=== PATIENT | male | born 1935 | race Caucasian/White ===

== ENCOUNTER 2016-09-11 05:03 | Emergency (ER) | payer MEDICARE, OTHER ==
[2016-09-11 07:14] LABS: ABSOLUTE EOSINOPHILS # (AUTO) 0.1 10^3/uL (0.0-0.6); ABSOLUTE LYMPHOCYTES (AUTO) 1.2 10^3/uL (0.5-4.7); ABSOLUTE MONOCYTES (AUTO) 0.5 10^3/uL (0.1-1.4); ABSOLUTE NEUT (AUTO) 3.1 10^3/uL (1.7-8.2); BASOPHILS % (AUTO) 0.7 % (0-2); EOSINOPHILS % (AUTO) 1.4 % (0-6); HEMATOCRIT 41.9 % (37.9-51.0); HEMOGLOBIN 14.4 g/dL (13.5-17.0); HGB HCT DIFFERENCE 1.3; LYMPHOCYTES % (AUTO) 25.4 % (13-45); MEAN CORPUSCULAR HEMOGLOBIN 29.8 pg (27.0-33.4); MEAN CORPUSCULAR HGB CONC 34.5 g/dL (32.0-36.0); MEAN CORPUSCULAR VOLUME 86 fl (80-97); MONOCYTES % (AUTO) 9.5 % (3-13); RED BLOOD COUNT 4.85 10^6/uL (4.35-5.55); RED CELL DISTRIBUTION WIDTH 13.9 % (11.5-14.0); WHITE BLOOD COUNT 4.9 10^3/uL (4.0-10.5)
[2016-09-11 07:26] LABS: ALANINE AMINOTRANSFERASE 30 U/L (21-72); ALBUMIN 4.2 g/dL (3.5-5.0); ALKALINE PHOSPHATASE 97 U/L (38-126); ANION GAP 11 (5-19); ASPARTATE AMINO TRANSFERASE 22 U/L (17-59); BILIRUBIN,TOTAL 1.6 mg/dL (0.2-1.3); BLOOD UREA NITROGEN 16 mg/dL (7-20); CALCIUM 9.4 mg/dL (8.4-10.2); CARBON DIOXIDE 27 mmol/L (22-30); CHLORIDE 100 mmol/L (98-107); CREATININE RESULT 1.12 mg/dL (0.52-1.25); GLUCOSE 101 mg/dL (75-110); LIPASE 75.2 U/L (23-300); POTASSIUM 4.3 mmol/L (3.6-5.0); SODIUM 137.8 mmol/L (137-145); TOTAL PROTEIN 6.3 g/dL (6.3-8.2)
[2016-09-11 08:19] LABS: APPEARANCE,URINE CLEAR; BILIRUBIN,URINE NEGATIVE (NEGATIVE); GLUCOSE, URINE NEGATIVE (NEGATIVE); KETONES,URINE NEGATIVE (NEGATIVE); LEUKOCYTE ESTERASE,URINE TRACE (NEGATIVE); NITRITE,URINE NEGATIVE (NEGATIVE); PROTEIN,URINE NEGATIVE (NEGATIVE); URINE SPECIFIC GRAVITY 1.018; UROBILINOGEN,URINE NEGATIVE mg/dL (<2.0)
--- NOTE | 2016-09-11 09:13 | ER Document Report ---
ED General - General Chief Complaint: Groin Pain Stated Complaint: GROIN PAIN Mode of Arrival: Ambulatory Information source: Patient Notes: Patient presents to the emergency department with complaints of right lower quadrant abdominal pain that radiates to his back and down the back of his right leg. Patient reports symptoms started approximately 8 PM last night. He describes them as a sharp steady pain that throbs. He reports the pain increased so he came to the emergency department. He denies other symptoms such as trauma fever vomiting diarrhea. He reports up until 8 PM last night he was fine. Patient denies pain with void. He denies testicular pain. He denies history of kidney stones. TRAVEL OUTSIDE OF THE [place] IN LAST 30 DAYS: No - HPI Onset: Yesterday Onset/Duration: Sudden, Persistent Quality of pain: Sharp, Throbbing Severity: Severe Pain Level: 4 Associated symptoms: None Exacerbated by: Denies. denies: Movement, Walking Relieved by: Denies Similar symptoms previously: No Recently seen / treated by doctor: No - Related Data Allergies/Adverse Reactions: No Known Allergies Allergy (Verified 09/11/16 05:18) Past Medical History - General Information source: Patient - Social History Smoking Status: Former Smoker - Quit 30 years ago Cigarette use (# per day): No Chew tobacco use (# tins/day): No Frequency of alcohol use: Rare Drug Abuse: None Family History: Reviewed & Not Pertinent Patient has suicidal ideation: No Patient has homicidal ideation: No - Past Medical History Cardiac Medical History: Reports: Hx Hypertension - DIOVAN Denies: Hx Heart Attack Pulmonary Medical History: Denies: Hx Asthma Neurological Medical History: Denies: Hx Cerebrovascular Accident, Hx Seizures Renal/ Medical History: Denies: Hx Peritoneal Dialysis GI Medical History: Denies: Hx Hepatitis, Hx Hiatal Hernia, Hx Ulcer Infectious Medical History: Denies: Hx Hepatitis Surgical Hx: Negative Past Surgical History: Denies: Hx Open Heart Surgery, Hx Pacemaker Review of Systems - Review of Systems Notes: Review HPI for review of systems., All other systems negative Physical Exam - Vital signs Vitals: Temp Pulse Resp BP Pulse Ox 97.4 F 76 16 146/78 H 98 09/11/16 05:10 09/11/16 05:10 09/11/16 05:10 09/11/16 05:10 09/11/16 05:10 - Notes Notes: PHYSICAL EXAMINATION: GENERAL: Well-appearing and in no acute distress nontoxic looking, calm HEAD: Atraumatic, normocephalic. EYES: Pupils equal round extraocular movements intact, sclera anicteric, conjunctiva are normal. ENT: nares patent, oropharynx clear without exudates. Moist mucous membranes. NECK: Normal range of motion, supple without lymphadenopathy LUNGS: CTAB and equal. No wheezes rales or rhonchi. HEART: Regular rate and rhythm without murmurs ABDOMEN: Soft, RLQ ttp. No guarding, no rebound BACK: Denies pain with palpation EXTREMITIES: Normal range of motion, no pitting edema. No cyanosis. NEUROLOGICAL: Cranial nerves grossly intact. Normal sensory/motor PSYCH: Normal mood, normal affect. SKIN: Warm, Dry, normal turgor, no rashes or lesions noted - Abdominal Inspection: Normal Distension: No distension Bowel sounds: Normal Tenderness: Tender - pt c/o some discomfort, does not scream in pain, no pain with movement, heel tap, negative obturator sign.. No: McBurney's point, Alcantara 's sign, Guarding, Rebound Adult front & back diagram: 1 - ttp - Genitourinary Tenderness: Nontender Scrotum: Normal. No: Swelling, Redness Course - Re-evaluation Re-evalutation: 09/11/16 09:10 I have consulted the attending provider Dr Roa per [facility] guidelines CT advised 09/11/16 09:50 CT neg, patient was instructed on all his labs importance of drinking lots of water, flushing his kidneys and follow-up with Dr. Ornelas in the morning. Patient reports he is feeling a lot better but requests something stronger for pain. We discussed Motrin and he wanted something stronger. He was educated on T#3, constipation, and warned to not take while driving. He verbalized understanding. - Vital Signs Vital signs: Temp Pulse Resp BP Pulse Ox 97.4 F 76 19 178/72 H 95 09/11/16 05:10 09/11/16 05:10 09/11/16 10:00 09/11/16 09:48 09/11/16 10:00 - Laboratory Result Diagrams: 09/11/16 06:50 09/11/16 06:50 Laboratory results interpreted by me: 09/11/16 09/11/16 06:50 06:50 Total Bilirubin 1.6 H Ur Leukocyte Esterase TRACE H - Diagnostic Test Radiology reviewed: Image reviewed, Reports reviewed - IMPRESSION: NO SIGNIFICANT OR ACUTE FINDING IN THE ABDOMEN OR PELVIS ON CT SCAN WITH IV CONTRAST Discharge - Discharge Clinical Impression: elevated blood pressure RLQ abdominal tenderness Qualifiers: Presence of rebound: present Qualified Code(s): R10.823 - Right lower quadrant rebound abdominal tenderness Condition: Stable Disposition: HOME, SELF-CARE Instructions: Abdominal Pain ([facility]), Use of Ipnt-Nyr-Fwobhdh Ibuprofen ([facility]), Observation for Appendicitis ([facility]), Acetaminophen with Codeine ([facility]) Additional Instructions: *You have been evaluated for abdominal pain *Your CT scan was negative for an appendicitis- please drink lots of fluids to flush your kidneys *Take Medication as prescribed for pain- this medication may make you sleepy, do not drive while taking it. This medication may cause constipation. Drink lots of fluids. *Follow up with Dr Ornelas within 3 days- call tomorrow for an appointment- inform the office it is a follow up visit from the emergency department *Return to ED for worsening condition, changes, needs *Return to ED if not better in 24 hours Prescriptions: Acetaminophen with Codeine [Tylenol #3 Tablet] 1 each PO Q4HP PRN #15 tablet PRN Reason: Forms: Elevated Blood Pressure Referrals: FARHAT ORNELAS MD [Primary Care Provider] - Follow up in 3-5 days
[2016-09-11 10:33] VITALS: BP 178/72
== END 2016-09-11 10:41 | disposition home or self-care (01) ==
LOC: ER 05:03
DX: R10.813 Right lower quadrant abdominal tenderness (principal); R10.31 Right lower quadrant pain; I10 Essential (primary) hypertension; Z87.891 Personal history of nicotine dependence
CPT/HCPCS: 36415; 74177; 80053; 81001; 83690; 85025; 99284

== ENCOUNTER → 2016-09-23 | Day surgery (SDC) | payer MEDICARE, OTHER ==
[~2016-09-23] MED LIST: BUPIVACAINE HCL 0.5 % INJ/PF 30 ML SDV ONE; LIDOCAINE 1% INJ-PF (10 MG/ML) 30 ML SDV ONE; METHYLPREDNISOLONE ACETATE INJ 40 MG/1 ML ML ONE
== END ==
LOC: RAD 13:03
PROVIDERS: ATTEND Physician Assistant
PROC: 3E0U33Z Introduction of Anti-inflammatory into Joints, Percutaneous Approach (ICD-10-PCS; principal; 2016-09-23)
DX: M25.551 Pain in right hip (principal)
CPT/HCPCS: 73501; 20610; 77002; J3490; J1020

== ENCOUNTER → 2018-02-13 | Outpatient (CLI) | payer MEDICARE, OTHER ==
--- NOTE | 2018-02-13 15:54 | RADIOLOGY REPORT (SQ) ---
EXAM DESCRIPTION: CT ABD/PELVIS WITH IV ORAL COMPLETED DATE/TIME: 02/13/2018 1:08 pm REASON FOR STUDY: RLQ PAIN (R10.31), PERIUMBILICAL PAIN (R10.33), UMBILICAL HERNIA (K42.9) R10.31 R IGHT LOWER QUADRANT PAIN R10.33 PERIUMBILICAL PAIN K42.9 UMBILICAL HERNIA WITHOUT OBSTRUCTION OR GA NGRENE COMPARISON: None. TECHNIQUE: CT scan of the abdomen and pelvis performed using helical scanning technique with dynamic intravenous contrast injection. Oral contrast. Images reviewed with lung, soft tissue, and bone win dows. Reconstructed coronal and sagittal MPR images reviewed. Delayed images for evaluation of the ur inary system also acquired. All images stored on PACS. All CT scanners at this facility use dose modulation, iterative reconstruction, and/or weight based d osing when appropriate to reduce radiation dose to as low as reasonably achievable (ALARA). [facility]: Dose Right [facility]: CareDose [facility]: Dose Right [facility]: Teradose 4D [facility]: Crazidea CONTRAST TYPE AND DOSE: contrast/concentration: Isovue 370.00 mg/ml; Total Contrast Delivered: 93.0 ml; Total Saline Delivered: 67.0 ml RENAL FUNCTION: Creatinine 1.3 RADIATION DOSE: CT Rad equipment meets quality standard of care and radiation dose reduction techniq ues were employed. CTDIvol: 10.2 - 14.2 mGy. DLP: 1340 mGy-cm.. LIMITATIONS: None. FINDINGS: LOWER CHEST: No significant findings. No nodules or infiltrates. LIVER: Normal size. No masses. No dilated ducts. SPLEEN: Normal size. No focal lesions. PANCREAS: No masses. No significant calcifications. No adjacent inflammation or peripancreatic fluid collections. Pancreatic duct not dilated. GALLBLADDER: No identified stones by CT criteria. No inflammatory changes to suggest cholecystitis. ADRENAL GLANDS: No significant masses or asymmetry. RIGHT KIDNEY AND URETER: No solid masses. No significant calcifications. No hydronephrosis or hyd roureter. LEFT KIDNEY AND URETER: No solid masses. No significant calcifications. No hydronephrosis or hydr oureter. AORTA AND VESSELS: No aneurysm or dissection. There is mild ectasia of the infrarenal abdominal aort a but the maximum diameter is about 25 mm. RETROPERITONEUM: No retroperitoneal adenopathy, hemorrhage or masses. BOWEL AND PERITONEAL CAVITY: Mild sigmoid diverticulosis. No acute inflammatory changes. APPENDIX: Normal. PELVIS: Prostate gland is prominent. There is mild protrusion of the prostate into the base of the b ladder. ABDOMINAL WALL: Small inguinal hernias containing fat and vessels. BONES: No significant or acute findings. OTHER: No other significant finding. IMPRESSION: 1. 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 2. Mild diverticulosis coli. 3. Prominent prostate gland with protrusion into the base of the bladder. 4. Small inguinal hernias containing fat and vessels. TECHNICAL DOCUMENTATION: JOB ID: [id number] Quality ID # [id number]: Final reports with documentation of one or more dose reduction techniques (e.g., Au tomated exposure control, adjustment of the mA and/or kV according to patient size, use of iterative reconstruction technique) 2010 [employer]- All Rights Reserved Reading location - IP/workstation name: [email or web address]
== END ==
LOC: RAD 12:30
PROVIDERS: ATTEND Internal Medicine Gastroenterology
DX: R10.31 Right lower quadrant pain (principal); R10.33 Periumbilical pain; K42.9 Umbilical hernia without obstruction or gangrene
CPT/HCPCS: 74177; 82565

== ENCOUNTER → 2018-09-10 | Outpatient (CLI) | payer MEDICARE, OTHER ==
--- NOTE | 2018-09-10 09:11 | RADIOLOGY REPORT (SQ) ---
EXAM DESCRIPTION: KUB/ABDOMEN (SINGLE VIEW) COMPLETED DATE/TIME: 09/10/2018 8:46 am REASON FOR STUDY: ABDOMINAL TENDERNESS RLQ R10.813 RIGHT LOWER QUADRANT ABDOMINAL TENDERNESS COMPARISON: None. NUMBER OF VIEWS: One view. TECHNIQUE: Supine radiographic image of the abdomen acquired. LIMITATIONS: None. FINDINGS: BOWEL GAS PATTERN: Normal bowel gas pattern. No dilated loops. CALCIFICATIONS: No suspicious calcifications. SOFT TISSUES: No gross mass or suggestion of organomegaly. HARDWARE: None in the abdomen. BONES: No acute fracture. Small bone island overlies the left iliac bone. Slight to mild dextroconv ex scoliosis lumbar spine. Mild degenerative changes bilateral hips. OTHER: No other significant finding. IMPRESSION: 1. NO RADIOGRAPHIC EVIDENCE FOR ACUTE ABDOMINAL DISEASE. TECHNICAL DOCUMENTATION: JOB ID: [id number] [employer]- All Rights Reserved Reading location - IP/workstation name: [email or web address]
== END ==
LOC: RAD 08:32
PROVIDERS: ATTEND Physician Assistant Surgical
DX: K59.01 Slow transit constipation (principal); R10.813 Right lower quadrant abdominal tenderness
CPT/HCPCS: 74018

== ENCOUNTER 2018-09-13 09:04 | Inpatient (IN) | payer MEDICARE, OTHER ==
--- NOTE | 2018-09-13 10:03 | ER Document Report ---
ED General - General Chief Complaint: Abdominal Pain Stated Complaint: BACK/SIDE PAIN Time Seen by Provider: 09/13/18 09:56 Primary Care Provider: BUNNY BOOTH PA-C [Primary Care Provider] - Follow up as needed Notes: Patient says he is having severe pain in his right back and flank and right side for about 2 weeks. He feels as if he is constipated, as he has had this pain previously with constipation. He has had colonoscopy about a year ago by sheet metal operator Dr. Hernandez which he says he was told it was okay except for maybe a small amount of diverticulitis (patient's words) and IBS. He went to Dr. Hernandez his office Monday and was seen by a PA in the office who did an x-ray and told him to take a laxative. Patient says he took magnesium citrate on Monday and later that day had some loose, watery stools. However, he has not had any bowel movement since Monday. Has never passed any blood in his stools. Patient says he was seen here about a year ago for a similar he says the pain is both pain and numbness in the right abdomen and back. He is nauseated but has not vomited. Has felt dizzy. Denies chest pains. Says he does have some shortness of breath and difficulty breathing. Has not had any UTI symptoms or blood in urine. Denies any fever. Has never had any abdominal surgeries. Patient's only other medical problem is hypertension. Not diabetic. No heart disease. Does not smoke. TRAVEL OUTSIDE OF THE [place] IN LAST 30 DAYS: No - Related Data Allergies/Adverse Reactions: No Known Allergies Allergy (Verified 09/11/16 05:18) Past Medical History - Social History Smoking Status: Unknown if Ever Smoked Cigarette use (# per day): No Family History: Reviewed & Not Pertinent - Past Medical History Cardiac Medical History: Reports: Hx Hypertension - DIOVAN Pulmonary Medical History: Denies: Hx Asthma, Hx COPD Endocrine Medical History: Denies: Hx Diabetes Mellitus Type 1, Hx Diabetes Mellitus Type 2 Past Surgical History: Reports: None Review of Systems - Review of Systems Notes: REVIEW OF SYSTEMS: CONSTITUTIONAL : Denies fever. EENT: Denies eye, ear, nose or mouth or throat pain or other symptoms. CARDIOVASCULAR: Denies chest pain. RESPIRATORY: Denies cough, chest congestion, but has felt some difficulty breathing and shortness of breath for a couple of days. GASTROINTESTINAL: See HPI. GENITOURINARY: Denies difficulty or painful urinating, urinary frequency, blood in urine. MUSCULOSKELETAL: Denies back or neck pain. Denies joint pain or swelling. SKIN: Denies rash or skin lesions. NEUROLOGICAL: Denies LOC or altered mental status. Denies headache. Denies sensory loss or motor deficits. ALL OTHER SYSTEMS REVIEWED AND NEGATIVE. Physical Exam - Vital signs Vitals: Temp Pulse Resp BP Pulse Ox 97.6 F 57 L 14 167/70 H 100 09/13/18 09:18 09/13/18 09:18 09/13/18 09:18 09/13/18 09:18 09/13/18 09:18 Interpretation: Normal Notes: PHYSICAL EXAMINATION: GENERAL: Well-appearing, in no acute distress. With mild systolic hypertension. HEAD: Atraumatic, normocephalic. EYES: Pupils equal round and reactive to light, extraocular movements intact. ENT: oropharynx clear without exudates. Moist mucous membranes. NECK: Normal range of motion, supple. LUNGS: Breath sounds clear and equal bilaterally. HEART: Regular rate and rhythm without murmurs. ABDOMEN: Soft, nontender. No guarding or rebound. No masses. No bruits heard. BACK: No tenderness throughout entire back. Patient indicates his pain is in the right mid and lower lumbar back region. EXTREMITIES: Normal range of motion without pain. Negative Homans bilaterally. NEUROLOGICAL: Normal speech, normal gait. Normal sensory, motor, and reflex exams. Awake, alert, and oriented x3. Cranial nerves normal. PSYCH: Normal mood, normal affect. Anxious. SKIN: Warm, dry, no rashes. Course - Re-evaluation Re-evalutation: 09/13/18 13:27 Sodium level is 125. I have contacted the hospitalist and patient will be admitted for IV normal saline overnight. - Vital Signs Vital signs: Temp Pulse Resp BP Pulse Ox 97.6 F 57 L 9 L 191/61 H 99 09/13/18 09:18 09/13/18 09:18 09/13/18 13:01 09/13/18 13:01 09/13/18 13:01 - Laboratory Result Diagrams: 09/13/18 10:20 09/13/18 10:20 Laboratory results interpreted by me: 09/13/18 09/13/18 10:20 12:20 Sodium 125.5 L Chloride 86 L Est GFR (Non-Af Amer) 58 L Total Bilirubin 1.9 H Urine Ketones 20 H - Diagnostic Test Radiology reviewed: Image reviewed, Reports reviewed - CT scan showed moderate stool accumulation. No other significant findings. - EKG Interpretation by Me EKG shows normal: Sinus rhythm Rhythm: NSR Lueders/QRS: LBBB Discharge - Discharge Clinical Impression: Hyponatremia, Constipation Condition: Stable Disposition: ADMITTED OBSERVATION Admitting Provider: Hospitalist Unit Admitted: Telemetry Referrals: BUNNY BOOTH PA-C [Primary Care Provider] - Follow up as needed
[2018-09-13 10:48] LABS: ABSOLUTE EOSINOPHILS # (AUTO) 0.1 10^3/uL (0.0-0.6); ABSOLUTE LYMPHOCYTES (AUTO) 1.2 10^3/uL (0.5-4.7); ABSOLUTE MONOCYTES (AUTO) 0.4 10^3/uL (0.1-1.4); ABSOLUTE NEUT (AUTO) 3.9 10^3/uL (1.7-8.2); BASOPHILS % (AUTO) 0.6 % (0-2); HEMATOCRIT 40.9 % (37.9-51.0); HEMOGLOBIN 14.6 g/dL (13.5-17.0); LYMPHOCYTES % (AUTO) 22.1 % (13-45); MEAN CORPUSCULAR HEMOGLOBIN 30.4 pg (27.0-33.4); MEAN CORPUSCULAR HGB CONC 35.6 g/dL (32.0-36.0); MEAN CORPUSCULAR VOLUME 85 fl (80-97); MONOCYTES % (AUTO) 7.1 % (3-13); PLATELET COUNT 273 10^3/uL (150-450); RED CELL DISTRIBUTION WIDTH 13.1 % (11.5-14.0); SEGMENTED NEUTROPHILS % (AUTO) 69.2 % (42-78); TOTAL CELLS COUNTED % (AUTO) 100 %; WHITE BLOOD COUNT 5.6 10^3/uL (4.0-10.5)
[2018-09-13 11:06] LABS: ALANINE AMINOTRANSFERASE 27 U/L (21-72); ALBUMIN 4.6 g/dL (3.5-5.0); ALKALINE PHOSPHATASE 92 U/L (38-126); ANION GAP 11 (5-19); ASPARTATE AMINO TRANSFERASE 22 U/L (17-59); BILIRUBIN,DIRECT 0.2 mg/dL (0.0-0.4); BILIRUBIN,TOTAL 1.9 mg/dL (0.2-1.3); BLOOD UREA NITROGEN 11 mg/dL (7-20); CALCIUM 9.6 mg/dL (8.4-10.2); CARBON DIOXIDE 29 mmol/L (22-30); CHLORIDE 86 mmol/L (98-107); GLUCOSE 98 mg/dL (75-110); LIPASE 139.4 U/L (23-300); POTASSIUM 4.4 mmol/L (3.6-5.0); SODIUM 125.5 mmol/L (137-145); TOTAL PROTEIN 6.8 g/dL (6.3-8.2)
--- NOTE | 2018-09-13 11:09 | RADIOLOGY REPORT (SQ) ---
EXAM DESCRIPTION: CHEST 2 VIEWS COMPLETED DATE/TIME: 09/13/2018 10:57 am REASON FOR STUDY: Shortness of breath, difficulty breathing COMPARISON: CT abdomen pelvis 09/10/2018, 02/13/2018 EXAM PARAMETERS: NUMBER OF VIEWS: two views TECHNIQUE: Digital Frontal and Lateral radiographic views of the chest acquired. RADIATION DOSE: NA LIMITATIONS: none FINDINGS: LUNGS AND PLEURA: Chronic blunting left lateral costophrenic sulcus. No acute infiltrates. No pleural effusion or pneumothorax. MEDIASTINUM AND HILAR STRUCTURES: No masses or contour abnormalities. HEART AND VASCULAR STRUCTURES: Heart normal size. No evidence for failure. BONES: No acute findings. HARDWARE: None in the chest. OTHER: No other significant finding. IMPRESSION: No acute findings. TECHNICAL DOCUMENTATION: JOB ID: [id number] [employer]- All Rights Reserved Reading location - IP/workstation name: [email or web address]
[2018-09-13 13:04] LABS: APPEARANCE,URINE CLEAR; BILIRUBIN,URINE NEGATIVE (NEGATIVE); COLOR,URINE YELLOW; GLUCOSE, URINE NEGATIVE (NEGATIVE); KETONES,URINE 20 mg/dL (NEGATIVE); LEUKOCYTE ESTERASE,URINE NEGATIVE (NEGATIVE); NITRITE,URINE NEGATIVE (NEGATIVE); PROTEIN,URINE NEGATIVE (NEGATIVE); URINE SPECIFIC GRAVITY 1.012; UROBILINOGEN,URINE NEGATIVE mg/dL (<2.0)
--- NOTE | 2018-09-13 13:12 | RADIOLOGY REPORT (SQ) ---
EXAM DESCRIPTION: CT ABD/PELVIS WITH IV ORAL COMPLETED DATE/TIME: 09/13/2018 1:00 pm REASON FOR STUDY: Right lower abdominal pain into right flank COMPARISON: 02/13/2018 TECHNIQUE: CT scan of the abdomen and pelvis performed using helical scanning technique with dynamic intravenous contrast injection. No oral contrast. Images reviewed with lung, soft tissue, and bone windows. Reconstructed coronal and sagittal MPR images reviewed. Delayed images for evaluation of the urinary system also acquired. All images stored on PACS. All CT scanners at this facility use dose modulation, iterative reconstruction, and/or weight based d osing when appropriate to reduce radiation dose to as low as reasonably achievable (ALARA). [facility]: Dose Right [facility]: CareDose [facility]: Dose Right [facility]: Teradose 4D [facility]: MangoPlate CONTRAST TYPE AND DOSE: contrast/concentration: Isovue 350.00 mg/ml; Total Contrast Delivered: 96.0 ml; Total Saline Delivered: 70.0 ml RENAL FUNCTION: None required. The patient is less than 50 years old. RADIATION DOSE: CT Rad equipment meets quality standard of care and radiation dose reduction techniq ues were employed. CTDIvol: 9.5 - 13.2 mGy. DLP: 1268 mGy-cm.. LIMITATIONS: None. FINDINGS: LOWER CHEST: No significant findings. No nodules or infiltrates. LIVER: Normal size. No masses. No dilated ducts. SPLEEN: Normal size. No focal lesions. PANCREAS: No masses. No significant calcifications. No adjacent inflammation or peripancreatic fluid collections. Pancreatic duct not dilated. GALLBLADDER: No identified stones by CT criteria. No inflammatory changes to suggest cholecystitis. ADRENAL GLANDS: No significant masses or asymmetry. RIGHT KIDNEY AND URETER: No solid masses. No significant calcifications. No hydronephrosis or hyd roureter. LEFT KIDNEY AND URETER: No solid masses. No significant calcifications. No hydronephrosis or hydr oureter. AORTA AND VESSELS: No aneurysm. No dissection. Renal arteries, SMA, celiac without stenosis. Calcifi c atherosclerosis. RETROPERITONEUM: No retroperitoneal adenopathy, hemorrhage or masses. BOWEL AND PERITONEAL CAVITY: No masses or inflammatory changes. No free fluid or peritoneal masses. Occasional sigmoid diverticula without evidence of acute diverticulitis. Moderate burden of stool. APPENDIX: Normal. PELVIS: No mass. No free fluid. Normal bladder. ABDOMINAL WALL: No masses. No hernias. BONES: No significant or acute findings. OTHER: No other significant finding. IMPRESSION: No CT findings to explain abdominal pain or constipation. Occasional sigmoid diverticu la without evidence of acute diverticulitis. Moderate burden of stool. TECHNICAL DOCUMENTATION: JOB ID: [id number] Quality ID # [id number]: Final reports with documentation of one or more dose reduction techniques (e.g., Au tomated exposure control, adjustment of the mA and/or kV according to patient size, use of iterative reconstruction technique) 2010 [employer]- All Rights Reserved Reading location - IP/workstation name: [email or web address]
[2018-09-13] MEDS ORDERED: NORMAL SALINE 1000 ML 1,000 ML IV ONE (13:26)
[2018-09-13] MEDS ORDERED: ACETAMINOPHEN 325 MG TABLET PO PRN (15:13)
[2018-09-13] MEDS ORDERED: ONDANSETRON 4 MG TAB.RAPDIS PO PRN (15:13)
[2018-09-13] MEDS ORDERED: NA PHOS,M-B/NA PHOS,DI-BA (ADULT) 133 ML ENEMA PR ONE ×2 (15:45→19:00)
[2018-09-13] MEDS: NORMAL SALINE 1000 ML 1,000 ML IV PRN (18:23)
[2018-09-13] MEDS ORDERED: HYDRALAZINE HCL INJ/PF 20 MG/1 ML SDV IV PRN (19:06)
--- NOTE | 2018-09-13 20:08 | PDOC H&P ---
History of Present Illness Admission Date/PCP: 09/13/18 14:14 BUNNY BOOTH PA-C Patient complains of: CONSTIPATION. HYPONATREMIA History of Present Illness: TIGRE JACOB is a 83 year old male with a PMH of HTN, diverticulitis, IBS and PNA. He presents to the emergency department with RLQ pain radiating to the R flank. He states that he has not had a solid bowel movement in 2 weeks. Of note, the patient has a history of constipation. Is a patient of Dr. Hernandez. Colonoscopy performed one year ago and only revealed diverticulosis. The patient used magnesium citrate and Dulcolax to relieve his symptoms but states he still has not had a bowel movement. He describes his pain as an 'aching' feeling. His symptoms are exacerbated approximately 1 hour after eating. The patient endorses nausea, denies vomiting. Upon arrival to the emergency department, CT abdomen pelvis was performed, which revealed sigmoid diverticula without evidence of diverticulitis and moderate burden of stool. Laboratory studies indicative of hyponatremia (Na 125), no other abnormalities. Of note, the patient is taking HCTZ (with losartaan) for HTN. Plan to admit the patient for intractable pain and hyponatremia. Plan for enema to relieve constipation. Free water restriction and NS IVF for HYPOnatremia. Discontinue HCTZ. Past Medical History Cardiac Medical History: Reports: Hypertension - DIOVAN Denies: Myocardial Infarction Pulmonary Medical History: Denies: Asthma, Chronic Obstructive Pulmonary Disease (COPD) Neurological Medical History: Denies: Seizures Endocrine Medical History: Denies: Diabetes Mellitus Type 1, Diabetes Mellitus Type 2 GI Medical History: Denies: Hepatitis, Hiatal Hernia Hematology: Denies: Anemia, Sickle Cell Disease Past Surgical History Past Surgical History: Reports: None Denies: Pacemaker Social History Smoking Status: Unknown if Ever Smoked Family History Family History: Reviewed & Not Pertinent Parental Family History Reviewed: Yes Children Family History Reviewed: Yes Sibling(s) Family History Reviewed.: Yes Medication/Allergy Home Medications: Aspirin [Aspirin 81 mg Chewable Tablet] 81 mg PO DAILY 09/13/18 Desipramine HCl [Norpramin] 10 mg PO DAILY 09/13/18 Losartan/Hydrochlorothiazide [Losartan-Hctz 100-25 mg Tab] 1 each PO DAILY 09/13/18 Tamsulosin HCl [Flomax 0.4 mg Cap.sr] 0.4 mg PO DAILY 09/13/18 Allergies/Adverse Reactions: No Known Allergies Allergy (Verified 09/11/16 05:18) Physical Exam Vital Signs: Temp Pulse Resp BP Pulse Ox 97.6 F 57 L 9 L 191/61 H 99 09/13/18 09:18 09/13/18 09:18 09/13/18 13:01 09/13/18 13:01 09/13/18 13:01 Intake & Output 09/12/18 09/13/18 09/14/18 06:59 06:59 06:59 Weight 83.915 kg General appearance: PRESENT: no acute distress Head exam: PRESENT: atraumatic Eye exam: PRESENT: conjunctiva pink, PERRLA Mouth exam: PRESENT: moist Neck exam: PRESENT: full ROM Respiratory exam: PRESENT: clear to auscultation elvie, symmetrical, unlabored Cardiovascular exam: PRESENT: +S1, +S2 Pulses: PRESENT: normal radial pulses, normal dorsalis pedis pul GI/Abdominal exam: PRESENT: soft, tenderness - RLQ radiating to flank. ABSENT: distended Rectal exam: PRESENT: deferred Extremities exam: PRESENT: full ROM Musculoskeletal exam: PRESENT: ambulatory, full ROM Neurological exam: PRESENT: alert, awake, oriented to person, oriented to place, oriented to time, oriented to situation Psychiatric exam: PRESENT: appropriate affect Skin exam: PRESENT: dry, intact, normal color Results Laboratory Results: 09/13/18 10:20 09/13/18 10:20 09/13/18 09/13/18 09/13/18 10:20 10:20 12:20 WBC 5.6 RBC 4.80 Hgb 14.6 Hct 40.9 MCV 85 MCH 30.4 MCHC 35.6 RDW 13.1 Plt Count 273 Seg Neutrophils % 69.2 Lymphocytes % 22.1 Monocytes % 7.1 Eosinophils % 1.0 Basophils % 0.6 Absolute Neutrophils 3.9 Absolute Lymphocytes 1.2 Absolute Monocytes 0.4 Absolute Eosinophils 0.1 Absolute Basophils 0.0 Sodium 125.5 L Potassium 4.4 Chloride 86 L Carbon Dioxide 29 Anion Gap 11 BUN 11 Creatinine 1.19 Est GFR ( Amer) > 60 Est GFR (Non-Af Amer) 58 L Glucose 98 Calcium 9.6 Total Bilirubin 1.9 H AST 22 ALT 27 Alkaline Phosphatase 92 Total Protein 6.8 Albumin 4.6 Lipase 139.4 Urine Color YELLOW Urine Appearance CLEAR Urine pH 7.0 Ur Specific [place] 1.012 Urine Protein NEGATIVE Urine Glucose (UA) NEGATIVE Urine Ketones 20 H Urine Blood NEGATIVE Urine Nitrite NEGATIVE Ur Leukocyte Esterase NEGATIVE Urine WBC (Auto) 0 Urine RBC (Auto) 0 09/13/18 10:20 Creatine Kinase 47 L Impressions: Abdomen/Pelvis CT 09/13/18 00:00 IMPRESSION: No CT findings to explain abdominal pain or constipation. Occasional sigmoid diverticula without evidence of acute diverticulitis. Moderate burden of stool. Chest X-Ray 09/13/18 09:57 IMPRESSION: No acute findings. Status: Imported from PACS Assessment & Plan - Diagnosis (1) Hyponatremia Is this a current diagnosis for this admission?: Yes Plan: Na 128 Patient is asymptomatic Likely related to HCTZ, plan to discontinue medication Free water restriction Recheck Na level in morning (2) Constipation Qualifiers: Constipation type: slow transit constipation Qualified Code(s): K59.01 - Slow transit constipation Is this a current diagnosis for this admission?: Yes Plan: Patient has a hx IBS Recurrent episodes of constipation in the past CT Abd/Pelvis relatively benign - sigmoid diverticula, no evidence of diverticulitis, moderate stool burden Plan for fleets enema NOW if not therapeutic, plan for soap suds enema (3) HTN (hypertension) Qualifiers: Hypertension type: essential hypertension Qualified Code(s): I10 - Essential (primary) hypertension Is this a current diagnosis for this admission?: Yes Plan: History of HTN Continue Losartaan - Time Time Spent: 30 to 50 Minutes Anticipated discharge: Home Within: within 24 hours - Inpatient Certification Based on my medical assessment, after consideration of the patient's comorbidities, presenting symptoms, or acuity I expect that the services needed warrant INPATIENT care.: Yes I certify that my determination is in accordance with my understanding of Medicare's requirements for reasonable and necessary INPATIENT services [42 CFR 412.3e].: Yes Medical Necessity: Risk of Complication if Not Cared For in Hospital - Plan Summary Plan Summary: ENEMA FOR CONSTIPATION RELIEF. FREE WATER RESTRICTION.
--- NOTE | 2018-09-13 21:08 | EKG REPORT ---
SEVERITY:- ABNORMAL ECG - SINUS RHYTHM FIRST DEGREE AV BLOCK LEFT BUNDLE BRANCH BLOCK : Confirmed by: Hayley Shirley MD 13-Sep-2018 21:07:22
[2018-09-13 21:34] LABS: OSMOLALITY,URINE 452 mOsm/kg (300-900)
[2018-09-13 21:40] LABS: URINE SODIUM 163 mmol/L (30-90)
[2018-09-14] MEDS ORDERED: BISACODYL 10 MG SUPP.RECT PR PRN (04:53)
[2018-09-14] MEDS: NORMAL SALINE 1000 ML 1,000 ML IV PRN (05:34)
[2018-09-14 06:02] LABS: HEMATOCRIT 37.7 % (37.9-51.0); HEMOGLOBIN 13.7 g/dL (13.5-17.0); MEAN CORPUSCULAR HEMOGLOBIN 30.7 pg (27.0-33.4); MEAN CORPUSCULAR HGB CONC 36.4 g/dL (32.0-36.0); MEAN CORPUSCULAR VOLUME 84 fl (80-97); PLATELET COUNT 239 10^3/uL (150-450); RED BLOOD COUNT 4.47 10^6/uL (4.35-5.55); RED CELL DISTRIBUTION WIDTH 13.3 % (11.5-14.0); WHITE BLOOD COUNT 5.4 10^3/uL (4.0-10.5)
[2018-09-14 06:32] LABS: ALANINE AMINOTRANSFERASE 32 U/L (21-72); ALBUMIN 3.8 g/dL (3.5-5.0); ALKALINE PHOSPHATASE 79 U/L (38-126); ANION GAP 6 (5-19); ASPARTATE AMINO TRANSFERASE 22 U/L (17-59); BILIRUBIN,DIRECT 0.3 mg/dL (0.0-0.4); BILIRUBIN,TOTAL 1.7 mg/dL (0.2-1.3); BLOOD UREA NITROGEN 10 mg/dL (7-20); CALCIUM 8.9 mg/dL (8.4-10.2); CARBON DIOXIDE 28 mmol/L (22-30); CHLORIDE 92 mmol/L (98-107); GLUCOSE 89 mg/dL (75-110); POTASSIUM 4.4 mmol/L (3.6-5.0); SODIUM 125.8 mmol/L (137-145); TOTAL PROTEIN 5.8 g/dL (6.3-8.2)
--- NOTE | 2018-09-14 09:07 | EKG REPORT ---
SEVERITY:- ABNORMAL ECG - SINUS BRADYCARDIA LEFT BUNDLE BRANCH BLOCK : Confirmed by: Hayley Shirley MD 14-Sep-2018 09:06:48
[2018-09-14] MEDS ORDERED: DESIPRAMINE HCL 10 MG PO SCH (10:00)
[2018-09-14] MEDS ORDERED: ENOXAPARIN SODIUM INJ 30 MG/0.3 ML DISP.SYRIN SUBCUT SCH (10:00)
[2018-09-14] MEDS ORDERED: ASPIRIN 81 MG TABLET, CHEWABLE PO SCH (10:00)
[2018-09-14] MEDS ORDERED: TAMSULOSIN HCL 0.4 MG CAP.SR.24H PO SCH (10:00)
[2018-09-14] MEDS ORDERED: LOSARTAN POTASSIUM 50 MG TABLET PO SCH (10:00)
[2018-09-14 15:52] VITALS: BP 150/65
--- NOTE | 2018-09-18 13:26 | PDOC DISCHARGE SUMMARY ---
General - Admit/Disc Date/PCP Admission Date/Primary Care Provider: 09/13/18 1513 BUNNY BOOTH PA-C Discharge Date: 09/14/18 - Discharge Diagnosis (1) Hyponatremia Is this a current diagnosis for this admission?: Yes (2) Constipation Is this a current diagnosis for this admission?: Yes (3) HTN (hypertension) Is this a current diagnosis for this admission?: Yes - Additional Information Discharge Diet: As Tolerated Discharge Activity: Activity As Tolerated Prescriptions: Lactulose 10 gm PO Q12H #10 packet Losartan Potassium [Cozaar 50 mg Tablet] 100 mg PO DAILY #30 tablet Tramadol HCl [Ultram 50 mg Tablet] 50 mg PO Q4H #10 tablet Home Medications: Aspirin [Aspirin 81 mg Chewable Tablet] 81 mg PO DAILY 09/13/18 Desipramine HCl [Norpramin] 10 mg PO DAILY 09/13/18 Tamsulosin HCl [Flomax 0.4 mg Cap.sr] 0.4 mg PO DAILY 09/13/18 Lactulose 10 gm PO Q12H #10 packet 09/14/18 Losartan Potassium [Cozaar 50 mg Tablet] 100 mg PO DAILY #30 tablet 09/14/18 Tramadol HCl [Ultram 50 mg Tablet] 50 mg PO Q4H #10 tablet 09/14/18 History of Present Illness History of Present Illness: TIGRE JACOB is a 83 year old male with a PMH of HTN, diverticulitis, IBS and PNA. He presents to the emergency department with RLQ pain radiating to the R flank. He states that he has not had a solid bowel movement in 2 weeks. Of note, the patient has a history of constipation. Is a patient of Dr. Hernandez. Colonoscopy performed one year ago and only revealed diverticulosis. The patient used magnesium citrate and Dulcolax to relieve his symptoms but states he still has not had a bowel movement. He describes his pain as an 'aching' feeling. His symptoms are exacerbated approximately 1 hour after eating. The patient endorses nausea, denies vomiting. Upon arrival to the emergency department, CT abdomen pelvis was performed, which revealed sigmoid diverticula without evidence of diverticulitis and moderate burden of stool. Laboratory studies indicative of hyponatremia (Na 125), no other abnormalities. Of note, the patient is taking HCTZ (with losartaan) for HTN. Plan to admit the patient for intractable pain and hyponatremia. Plan for enema to relieve constipation. Free water restriction and NS IVF for HYPOnatremia. Discontinue HCTZ. Hospital Course Hospital Course: TIGRE JACOB is a 83 year old male with a PMH of HTN, diverticulitis, IBS and PNA. He was admitted to the hospitalist service for intractable abdominal pain. CT of the abdomen and pelvis demonstrated that constipation was the patient's only pathology. He was treated with a fleets enema, followed by a soap suds enema. The patient was able to have a small bowel movement following the soap suds enema. In addition to his constipation, the patient was admitted for hyponatremia. His initial Na 128. He was asymptomatic upon presentation - no confusion, GARCIA, blurry vision, or other neurological symptoms. After reviewing his medication list, it was discovered that he takes a combination pill losartan/HCTZ. The HCTZ is likely what lead to his hyponatremia. 24 hours after admission, the patient was discharged home with a prescription for lactulose for his constipation, and was instructed to stop taking his current blood pressure medication. He was given a prescription for losartaan and instructed to follow up with his primary care doctor about determining if he needs diuretic therapy, and if so prescribing a different diuretic. For any further information regarding this patient's hospitalization, please refer to the EMR. Physical Exam Vital Signs: Temp Pulse Resp BP Pulse Ox 97.7 F 47 L 18 150/65 H 100 09/14/18 15:48 09/14/18 15:48 09/14/18 15:48 09/14/18 15:48 09/14/18 15:48 Results Laboratory Results: 09/14/18 04:07 09/14/18 04:07 09/13/18 09/13/18 09/13/18 10:20 10:20 21:25 Creatine Kinase 47 L 72 Troponin I < 0.012 09/13/18 09/14/18 09/14/18 21:25 04:07 04:07 Creatine Kinase 57 Troponin I < 0.012 < 0.012 Impressions: Abdomen/Pelvis CT 09/13/18 00:00 IMPRESSION: No CT findings to explain abdominal pain or constipation. Occasional sigmoid diverticula without evidence of acute diverticulitis. Moderate burden of stool. Chest X-Ray 09/13/18 09:57 IMPRESSION: No acute findings. Qualifiers - * PATIENT BEING DISCHARGED WITH ANY OF THE FOLLOWING DIAGNOSIS: No
== END 2018-09-14 16:15 | disposition home or self-care (01) | DRG 641 ==
LOC: ER 09:04 → EH 14:14 → 4N 18:18 → OBSVTOIN 09-14 09:15
PROVIDERS: ADMIT Internal Medicine; ATTEND Internal Medicine
DX: E87.1 Hypo-osmolality and hyponatremia (principal); I44.7 Left bundle-branch block, unspecified; I10 Essential (primary) hypertension; K57.30 Diverticulosis of large intestine without perforation or abscess without bleeding; K59.01 Slow transit constipation; K58.9 Irritable bowel syndrome, unspecified; Z79.82 Long term (current) use of aspirin
CPT/HCPCS: 36415; 71046; 74177; 80053; 81001; 82550; 83690; 83935; 84300; 84484; 85025; 85027; 93005; 93010; 96360; 96361; 99285; G0378; J3490; J7030

== ENCOUNTER → 2018-10-09 | Outpatient (CLI) | payer MEDICARE, OTHER ==
--- NOTE | 2018-10-09 15:54 | RADIOLOGY REPORT (SQ) ---
EXAM DESCRIPTION: ABDOMEN 2 VIEWS COMPLETED DATE/TIME: 10/09/2018 3:29 pm REASON FOR STUDY: CONSTIPATION K59.01 K59.01 SLOW TRANSIT CONSTIPATION COMPARISON: 09/10/2018 NUMBER OF VIEWS: Two views. TECHNIQUE: Supine and erect/decubitus radiographic images of the abdomen acquired. LIMITATIONS: None. FINDINGS: FREE AIR: None. No abnormal gas collections. LUNG BASES: Clear. BOWEL GAS PATTERN: Nonobstructive pattern. No dilated loops or air fluid levels. CALCIFICATIONS: No suspicious calcifications. SOFT TISSUES: No gross mass or suggestion of organomegaly. HARDWARE: None in the abdomen. BONES: No acute fracture. No worrisome bone lesions. OTHER: No other significant finding. IMPRESSION: NO RADIOGRAPHIC EVIDENCE FOR ACUTE ABDOMINAL DISEASE. TECHNICAL DOCUMENTATION: JOB ID: [id number] [employer]- All Rights Reserved Reading location - IP/workstation name: [email or web address]
== END ==
LOC: RAD 15:11
PROVIDERS: ATTEND Internal Medicine Gastroenterology
DX: K59.01 Slow transit constipation (principal)
CPT/HCPCS: 74019